=== PATIENT | female | born 1985 | race Caucasian/White ===

== ENCOUNTER 2016-11-25 07:38 | Emergency (ER) | payer BC, MEDICAID ==
[~2016-11-25] VITALS: Ht 170.2 cm; Wt 130.2 kg
[2016-11-25 07:46] VITALS: BP 141/47
[2016-11-25] MEDS ORDERED: EPINEPHrine HCL 1 MG/1 ML AMP SC ONE (08:45)
== END 2016-11-25 09:26 | disposition home or self-care (01) ==
LOC: ER 07:38
DX: T78.40XA Allergy, unspecified, initial encounter (principal); J45.909 Unspecified asthma, uncomplicated; Z85.41 Personal history of malignant neoplasm of cervix uteri
CPT/HCPCS: 96372; 99283; J0171